=== PATIENT | male | born 1985 | race Caucasian/White ===

== ENCOUNTER → 2016-08-08 | Outpatient (REF) ==
[~2016-08-08] MED LIST: CIPRO 500MG TA500 MG PO; FLOMAX 0.40.4 MG/CAP PO; NORCO 325 MG-51 TAB PO; PERCOCET 325 MG1 TA2 PO; ULTRAM 50MG TAB50 MG PO; ZOFRAN8 MG PO; ZOLOFT 100MG100 MG PO
== END ==
LOC: WSOH 09:48
DX: Z00.00 Encounter for general adult medical examination without abnormal findings (principal)

== ENCOUNTER 2017-07-01 21:19 | Emergency (ER) | payer OTHER ==
[~2017-07-01] VITALS: Ht 170.2 cm; Wt 100.0 kg
[2017-07-01 21:26] VITALS: BP 133/77; PULSE 102; TEMP 98.2
== END 2017-07-01 23:18 | disposition home or self-care (01) ==
LOC: COL.ER 21:19
DX: L25.9 Unspecified contact dermatitis, unspecified cause (principal); F41.9 Anxiety disorder, unspecified
CPT/HCPCS: J1100

== ENCOUNTER 2017-12-26 02:12 | Emergency (ER) | payer OTHER ==
[~2017-12-26] VITALS: Ht 170.2 cm; Wt 100.0 kg
[2017-12-26 02:18] VITALS: BP 156/101; TEMP 98.8
[2017-12-26] MEDS ORDERED: ZOLOFT 100MG100 MG PO (02:41)
[2017-12-26] MEDS ORDERED: AMOXICILLIN 50500 MG PO (03:00)
[2017-12-26 03:30] VITALS: PULSE 92
== END 2017-12-26 03:30 | disposition home or self-care (01) ==
LOC: COL.ER 02:12
DX: K02.9 Dental caries, unspecified (principal)

== ENCOUNTER 2019-12-16 21:24 | Emergency (ER) | payer OTHER ==
[~2019-12-16] VITALS: Ht 170.2 cm; Wt 101.8 kg
[~2019-12-16 21:24] MED LIST changes: +AMOXICILLIN 50500 MG PO
[2019-12-16 21:35] VITALS: BP 123/88; TEMP 97.8
[2019-12-16 21:58] LABS: BASO # 0.1 (0.0-0.2); BASO % 0.5 % (0.0-2.0); EOS # 0.3 (0.0-0.7); EOS % 3.6 % (0-4.0); GRAN # 4.8 (1.4-6.5); GRAN % 50.1 % (42.2-75.2); HEMATOCRIT 44.1 % (42.0-52.0); HEMOGLOBIN 15.7 g/dl (13.5-18.0); LYMPH # 3.7 (1.2-3.4); LYMPH % 38.3 % (20.0-51.0); MEAN CELL VOLUME 84 fl (80.0-100.0); MEAN CORPUSCULAR HEMOGLOBIN 30 pg (27.0-31.0); MEAN CORPUSCULAR HGB CONC 36 g/dl (33.0-37.0); MEAN PLATELET VOLUME 8.8 fl (7.4-10.4); MONO # 0.7 (0.1-0.6); MONO % 7.2 % (1.7-9.3); PLATELET COUNT 286 K/mm3 (130-400); RED BLOOD COUNT 5.25 M/mm3 (4.20-5.60); REDCELL DISTRIBUTION WIDTH-CV 11.7 % (11.5-14.5)
[2019-12-16 22:04] LABS: ALBUMIN 3.9 gm/dL (3.5-5.0); BILIRUBIN,TOTAL 0.4 mg/dL (0.0-1.0); CREATININE, serum 1.06 (0.66-1.25); POTASSIUM 4.3 mmol/L (3.4-5.0); TOTAL PROTEIN 6.1 gm/dL (6.4-8.2)
[2019-12-16 22:48] LABS: COLLECTION METHOD CLEAN CATCH
[2019-12-16 22:56] LABS: MUCOUS Present /lpf; PH 5 (5-8); SQUAMOUS EPITHELIAL 0-2 /hpf; URINE APPEARANCE Clear; URINE BACTERIA None Seen /hpf; URINE BILIRUBIN Negative (NEGATIVE); URINE BLOOD Negative (NEGATIVE); URINE COLOR Yellow; URINE GLUCOSE Negative (NEGATIVE); URINE KETONE Negative (NEGATIVE); URINE LEUKOCYTE ESTERASE Negative (NEGATIVE); URINE NITRATE Negative (NEGATIVE); URINE PROTEIN(semi-quant) Negative (NEGATIVE); URINE UROBILINOGEN Negative (NEGATIVE)
[2019-12-16 23:38] VITALS: PULSE 78
== END 2019-12-16 23:36 | disposition home or self-care (01) ==
LOC: COL.ER 21:24
PROVIDERS: Physician Assistant
DX: Z87.442 Personal history of urinary calculi (principal); R10.9 Unspecified abdominal pain
CPT/HCPCS: J7030

== ENCOUNTER 2020-09-08 18:57 | Emergency (ER) | payer BC ==
[~2020-09-08] VITALS: Ht 170.2 cm; Wt 100.0 kg
[2020-09-08 19:03] VITALS: TEMP 98
[2020-09-08 19:37] LABS: COLLECTION METHOD CLEAN CATCH; MUCOUS Present /lpf; PH 5 (5-8); SQUAMOUS EPITHELIAL None Seen /hpf; URINE APPEARANCE Clear; URINE BACTERIA None Seen /hpf; URINE BILIRUBIN Negative (NEGATIVE); URINE BLOOD Negative (NEGATIVE); URINE COLOR Yellow; URINE GLUCOSE Negative (NEGATIVE); URINE KETONE Negative (NEGATIVE); URINE LEUKOCYTE ESTERASE Negative (NEGATIVE); URINE NITRATE Negative (NEGATIVE); URINE PROTEIN(semi-quant) Negative (NEGATIVE); URINE RBC 0-2 /hpf; URINE UROBILINOGEN Negative (NEGATIVE)
[2020-09-08 20:21] VITALS: BP 131/76; PULSE 87
== END 2020-09-08 20:21 | disposition home or self-care (01) ==
LOC: COL.ER 18:57
PROVIDERS: Nurse Practitioner Primary Care
DX: R82.998 Other abnormal findings in urine (principal); Z87.442 Personal history of urinary calculi; Z87.440 Personal history of urinary (tract) infections

== ENCOUNTER 2021-01-17 23:49 | Emergency (ER) | payer BC ==
[~2021-01-17] VITALS: Ht 170.2 cm; Wt 104.5 kg
[2021-01-18 00:37] LABS: COLLECTION METHOD CLEAN CATCH
[2021-01-18 00:46] LABS: BUDDING YEAST Present /hpf; PH 6 (5-8); SQUAMOUS EPITHELIAL 0-2 /hpf; URINE APPEARANCE Cloudy; URINE BACTERIA None Seen /hpf; URINE BILIRUBIN Negative (NEGATIVE); URINE BLOOD 3+ (NEGATIVE); URINE CALCIUM OXALATE CRYSTAL Present /hpf; URINE COLOR Yellow; URINE GLUCOSE Negative (NEGATIVE); URINE KETONE Negative (NEGATIVE); URINE LEUKOCYTE ESTERASE Negative (NEGATIVE); URINE NITRATE Negative (NEGATIVE); URINE PROTEIN(semi-quant) 2+ (NEGATIVE); URINE RBC >50 /hpf; URINE UROBILINOGEN Negative (NEGATIVE)
[2021-01-18 01:05] LABS: BASO % 0.4 % (0.0-2.0); EOS # 0.3 K/mm3 (0.0-0.7); EOS % 2.9 % (0-4.0); GRAN # 5.5 K/mm3 (1.4-6.5); GRAN % 60.9 % (42.2-75.2); HEMATOCRIT 41.6 % (42.0-52.0); HEMOGLOBIN 14.8 g/dl (13.5-18.0); LYMPH # 2.4 K/mm3 (1.2-3.4); LYMPH % 26.2 % (20.0-51.0); MEAN CELL VOLUME 83 fl (80.0-100.0); MEAN CORPUSCULAR HEMOGLOBIN 29 pg (27.0-31.0); MEAN CORPUSCULAR HGB CONC 36 g/dl (33.0-37.0); MEAN PLATELET VOLUME 9.1 fl (7.4-10.4); MONO # 0.9 K/mm3 (0.1-0.6); MONO % 9.4 % (1.7-9.3); PLATELET COUNT 296 K/mm3 (130-400); RED BLOOD COUNT 5.04 M/mm3 (4.20-5.60); REDCELL DISTRIBUTION WIDTH-CV 11.8 % (11.5-14.5)
[2021-01-18 01:23] LABS: ALBUMIN 4.4 gm/dL (3.5-5.0); BILIRUBIN,TOTAL 0.5 mg/dL (0.2-1.2); C-REACTIVE PROTEIN 0.44 mg/dL (0.00-0.50); CALCIUM 9.9 mg/dL (8.4-10.2); CREATININE, serum 1.26 mg/dL (0.72-1.25); POTASSIUM 3.9 mmol/L (3.5-4.5); TOTAL PROTEIN 7.6 gm/dL (6.2-8.1)
[2021-01-18 03:53] VITALS: BP 138/93; PULSE 83; TEMP 98.5
== END 2021-01-18 04:05 | disposition home or self-care (01) ==
LOC: COL.ER 23:49
PROVIDERS: Nurse Practitioner Primary Care
DX: N13.2 Hydronephrosis with renal and ureteral calculous obstruction (principal)
CPT/HCPCS: J1885; J2405; J7030; Q9967

== ENCOUNTER 2024-01-17 22:27 | Emergency (ER) | payer OTHER ==
[~2024-01-17] VITALS: Ht 170.2 cm; Wt 113.6 kg
[~2024-01-17 22:27] MED LIST changes: +ZOFRAN ODT4 MG PO
[2024-01-17 22:38] VITALS: TEMP 101.7
[2024-01-17] MEDS ORDERED: Acetaminophen 500 MG TAB PO ONE (23:00)
[2024-01-17] MEDS ORDERED: Ibuprofen 400 MG TAB PO ONE (23:00)
[2024-01-17] MEDS ORDERED: dexAMETHasone 10 MG/ML VIAL PO ONE (23:00)
[2024-01-17] MEDS ORDERED: TAMIFLU 75MG75 MG PO (23:48)
[2024-01-17] MEDS ORDERED: ZOFRAN ODT4 MG PO (23:49)
[2024-01-18 00:06] VITALS: BP 123/80; PULSE 105
== END 2024-01-18 00:07 | disposition home or self-care (01) ==
LOC: COL.ER 22:27
DX: J10.1 Influenza due to other identified influenza virus with other respiratory manifestations (principal); Z20.822 Contact with and (suspected) exposure to COVID-19
CPT/HCPCS: J1100